=== PATIENT | female | born 1965 | race Caucasian/White ===

== ENCOUNTER 2017-04-16 08:16 | Inpatient (IN) | payer OTHER ==
[~2017-04-16 08:16] MED LIST: ROPIVACAINE 0.2% 80 MG, EPINEPHrine 0.2 MG, KETOROLAC TROMETHAMINE 30 MG in SYRINGE 0 ML IU ONE; TRANEXAMIC ACID 3,000 MG in NS 50 ML IRR ONE; TRANEXAMIC ACID 3,000 MG/50 ML BAG IRR ONE
[2017-04-16] MEDS ORDERED: LIDOCAINE 1% 2 ML INJ ID PRN (08:44)
[2017-04-16] MEDS ORDERED: LR 1,000 ML IV ONE (08:44)
--- NOTE | 2017-04-16 08:51 | PDANEPAE ---
ANE History of Present Illness 51 year old female w/ PMHx left hip pain presents for left total hip arthroplasty. ANE Past Medical History - Cardiovascular History Hx Hypertension: No Hx Arrhythmias: No Hx Chest Pain: No Hx Coronary Artery / Peripheral Vascular Disease: No Hx CHF / Valvular Disease: No Hx Palpitations: No - Pulmonary History Hx COPD: No Hx Asthma/Reactive Airway Disease: No Hx Recent Upper Respiratory Infection: No Hx Oxygen in Use at Home: No Hx Sleep Apnea: No Sleep Apnea Screening Result - Last Documented: Negative Pulmonary History Comment: PNEUMONIA YRS AGO - Neurologic History Hx Cerebrovascular Accident: No Hx Seizures: No Hx Dementia: No - Endocrine History Hx Diabetes: No Hypothyroid: No Hyperthyroid: No Obesity: no - Liver History Hx Hepatic Disorders: No - Neurological & Psychiatric Hx Hx Neurological and Psychiatric Disorders: Yes Neurological / Psychiatric History Comment: Recently started on Lexapro for depression - Cancer History Hx Cancer: No - Congenital Disorder History Hx Congenital Disorders: No - GI History Hx Gastrointestinal Disorders: No - Other Health History Other Health History: NEG - Chronic Pain History Chronic Pain: Yes (L HIP PAIN) - Surgical History Prior Surgeries: BREAST BX ANE Review of Systems Review of systems is: negative Review of Systems: - Exercise capacity Exercise capacity: >=4 METS METS (RN): 5 METS ANE Patient History - Allergies Allergies/Adverse Reactions: amoxicillin Allergy (Verified 03/08/17 14:51) Rash morphine Allergy (Verified 03/08/17 14:51) - Home Medications Home medications: home medication list seen and reviewed Home Medications: Herbals/Supplements -Info Only 1 ea PO DAILY 03/08/17 [Last Taken 04/02/17] Lexapro 10 mg PO DAILY 04/16/17 [Last Taken 04/16/17 06:30] - NPO status NPO Status: no food or drink >8 hours - Anes Hx Anes Hx: no prior problems - Smoking Hx Smoking Status: Never smoked Marijuana use: No - Alcohol Use Alcohol Use: Rarely - Family Anes Hx Family Hx Anesthesia Complications: FATHER W/POST OP HALLUCINATIONS FOLLOWING HEART SURGERY ANE Labs/Vital Signs - Vital Signs Vital Signs: reviewed preoperatively; see RN documention for details Height: 163.83 cm Weight: 65.771 kg ANE Physical Exam - Airway Neck exam: FROM Mallampati Score: Class 2 Mouth exam: normal dental/mouth exam - Pulmonary Pulmonary: no respiratory distress - Cardiovascular Cardiovascular: regular rate and rhythym - ASA Status ASA Status: II ANE Anesthesia Plan Anesthesia Plan: general endotracheal anesthesia (General Anesthesia as back up plan.), MAC, spinal Total IV Anesthesia: No
[2017-04-16] MEDS ORDERED: ceFAZolin 2 GM/SWFI 2 GM/20 ML SYR IVP ONE (08:52)
[2017-04-16] MEDS ORDERED: ACETAMINOPHEN 325 MG TAB PO ONE (08:52)
[2017-04-16] MEDS ORDERED: DEXAMETHASONE 4 MG/ML VIAL IVP ONE (08:52)
[2017-04-16] MEDS ORDERED: FAMOTIDINE 20 MG TAB PO ONE (08:52)
--- NOTE | 2017-04-16 09:15 | PDHPUP ---
History & Physical Update H&P update statement: This history and physical update is based on an assessment of the patient which was completed after admission or registration (within 24 hours), but prior to the surgery/procedure. H&P update: H&P reviewed & patient examined, no change in patient's condition since H&P completed
[2017-04-16] MEDS ORDERED: MIDAZOLAM 2 MG/2 ML VIAL IVP ONE (09:24)
[2017-04-16] MEDS ORDERED: PROPOFOL/EMULSION 500 MG/50 ML BOTTLE IV ONE (09:54)
[2017-04-16] MEDS ORDERED: HYDROmorphONE/DILAUDID 1 MG/ML INJ IVP PRN (10:32)
[2017-04-16] MEDS ORDERED: NALOXONE HCL 0.4 MG/ML INJ IVP PRN (10:32)
[2017-04-16] MEDS ORDERED: fentaNYL 100 MCG/2 ML INJ IVP PRN (10:32)
[2017-04-16] MEDS ORDERED: ONDANSETRON 4 MG/2 ML VIAL IVP PRN ×2 (10:32→11:35)
[2017-04-16] MEDS ORDERED: HYDROCODONE/APAP 5/325 TAB PO PRN (10:32)
[2017-04-16] MEDS ORDERED: LR 500 ML IV PRN (10:32)
[2017-04-16] MEDS ORDERED: TEMAZEPAM 15 MG CAP PO PRN (11:35)
[2017-04-16] MEDS ORDERED: METOCLOPRAMIDE 10 MG/2 ML VIAL IVP PRN (11:35)
[2017-04-16] MEDS ORDERED: DIPHENOXYLATE/ATROPINE LOMOTIL 1 TAB PO PRN (11:35)
[2017-04-16] MEDS ORDERED: PROMETHAZINE HCL 25 MG SUPPR PR PRN (11:35)
[2017-04-16] MEDS ORDERED: ONDANSETRON DISINTEGRATING 4 MG TAB PO PRN (11:35)
[2017-04-16] MEDS ORDERED: diphenhydrAMINE 25 MG CAP PO PRN (11:35)
[2017-04-16] MEDS ORDERED: LACTULOSE 20 GM/30 ML UDCUP PO PRN (11:35)
[2017-04-16] MEDS ORDERED: MAGNESIUM HYDROXIDE 30 ML UDCUP PO PRN (11:35)
[2017-04-16] MEDS ORDERED: BISACODYL 10 MG SUPP PR PRN (11:35)
[2017-04-16] MEDS ORDERED: CYCLOBENZAPRINE 10 MG TAB PO PRN (11:35)
[2017-04-16] MEDS ORDERED: PROMETHAZINE HCL 25 MG/ML INJ IVP PRN (11:35)
[2017-04-16] MEDS ORDERED: POLYETHYLENE GLYCOL 3350 17 GM PKT PO PRN (11:35)
--- NOTE | 2017-04-16 11:35 | POSTOPPROG ---
Post Op Note Date of Operation: 04/16/17 Surgeon: Ashu Schwartz [employer] Managing Editor: tobin schwartz Anesthesiologist: dr. sotelo Anesthesia: Spinal Pre-op Diagnosis: left hip OA Post-op Diagnosis: same Indication: left hip pain due to OA that failed conservative measures Procedure: L CRISSY ant approach Findings: severe hip OA Inf/Abcess present in the surg proc area at time of surgery?: No EBL: 100-500
[2017-04-16] MEDS ORDERED: fentaNYL 100 MCG/2 ML INJ ONE (11:54)
[2017-04-16] MEDS ORDERED: LR 1,000 ML IV SCH (12:00)
--- NOTE | 2017-04-16 12:53 | POSTANESTH ---
Post Anesthetic Evaluation Cardiovascular Status: Normal, Stable, Similar to Pre-Op Cond Respiratory Status: Normal, Stable, Similar to Pre-op Cond. Level of Consciousness/Mental Status: Can Participate in Eval, Alert and Oriented Pain Control: Adequate, Prn Tx Ordered Nausea/Vomiting Control: Adequate, Prn Tx Ordered Complications Possibly Related to Anesthesia: None Noted
[2017-04-16] MEDS: ACETAMINOPHEN 325 MG TAB PO SCH ×2 (13:30→18:12)
[2017-04-16] MEDS ORDERED: ceFAZolin 2 GM/SWFI 20 ML SYR IVP SCH ×2 (13:30→18:00)
[2017-04-16] MEDS: oxyCODONE IR 5 MG TAB PO PRN (13:30)
[2017-04-16] MEDS ORDERED: ceFAZolin 2 GM/DEXTROSE 100 ML IV SCH (14:00)
[2017-04-16] MEDS: ceFAZolin 2 GM/SWFI 2 GM/20 ML SYR IVP SCH (18:13)
[2017-04-16 19:41] VITALS: RESP 16
[2017-04-16] MEDS: SENNOSIDES/DOCUSATE SODIUM TAB PO SCH (20:21)
[2017-04-16] MEDS: FAMOTIDINE 20 MG TAB PO SCH (20:24)
[2017-04-16] MEDS ORDERED: ASPIRIN EC 81 MG TAB PO SCH (20:30)
[2017-04-17] MEDS: ACETAMINOPHEN 325 MG TAB PO SCH ×2 (00:21→05:50)
[2017-04-17] MEDS: ceFAZolin 2 GM/SWFI 2 GM/20 ML SYR IVP SCH (02:15)
[2017-04-17 05:17] LABS: HEMATOCRIT 30.2 % (38.0-47.0); HEMOGLOBIN 10.6 g/dL (12.6-16.3)
[2017-04-17 05:39] VITALS: O2SAT 95
[2017-04-17 08:27] VITALS: BP 108/51; PULSE 74; TEMP 99.1
[2017-04-17] MEDS ORDERED: ASPIRIN EC 81 MG TAB PO SCH (09:00)
[2017-04-17] MEDS ORDERED: ESCITALOPRAM OXALATE 10 MG TAB PO SCH (09:00)
--- NOTE | 2017-04-17 09:24 | SOAPPROG ---
SOAP Progress Note Assessment/Plan: Assessment: Lexii is doing well today s/p L CRISSY 1) pain is well controlled on oral pain meds 2) VTE ppx: recommend ASA 81mg BID 3) d/c planning: d/c to home pending release from PT 4) anemia: level expected initially postop Plan: 04/17/17 09:20 Objective: Vital Signs Temp Pulse Resp BP Pulse Ox 37.3 C 74 16 108/51 L 95 04/17/17 08:25 04/17/17 08:25 04/17/17 08:25 04/17/17 08:25 04/17/17 08:25 Laboratory Results 04/17/17 04:50 04/16/17 04/17/17 04/18/17 05:59 05:59 05:59 Intake Total 2675 Output Total 1550 Balance 1125 ICD10 Worksheet Patient Problems: Problems Problem Status Onset Primary localized osteoarthritis of left hip Acute
[2017-04-17] MEDS: FAMOTIDINE 20 MG TAB PO SCH (09:46)
[2017-04-17] MEDS: SENNOSIDES/DOCUSATE SODIUM TAB PO SCH (09:47)
[2017-04-17] MEDS: oxyCODONE IR 5 MG TAB PO PRN (09:59)
--- NOTE | 2017-04-17 10:06 | ASDISCHSUM ---
Discharge Information Plan Status:Home with No Needs Medically Cleared to Leave:04/16/2017 Discharge Date:04/16/2017 CM D/C Disposition:Home, Routine, Self-Care ADT D/C Disposition:Home, Routine, Self-Care Projected Discharge Date:04/16/2017 Transportation at D/C:Family Discharge Delay Reason: Follow-Up Date:04/16/2017 Discharge Slot: Final Diagnosis: Placement Information Patient Contact Information Contact Name:BRYCE Relationship:Sam Address:[address] City:[place] Alternate Phone: [facility]/Zip Code:[place] [address] Email: Financial Information Financial Class:Thuy Palmer Primary Plan Desc:THUY CRISOSTOMO [facility] Primary Plan Number:[id number] Secondary Plan Desc: Secondary Plan Number: Assessment Information Case Management Discharge Plan Note Case Management Discharge Discharge Order Complete? Answers: Yes Patient to Obtain Answers: via Family Medications Transportation Arranged Answers: Family/Friends Discharge Comments Notes: Pt s/p L CRISSY. PT/OT cleared. Pt is discharging home today with her . No CM needs identified. Date Signed: 04/17/2017 10:05 AM Electronically Signed By:MARY Bah Intervention Information
--- NOTE | 2017-04-19 17:25 | GOP ---
[f rep st] OPERATIVE REPORT DATE OF OPERATION: 04/16/2017 SURGEON: Jarrett Acosta MD MAGAZINE KEEPER: Yelena Acosta PA-C PREOPERATIVE DIAGNOSIS: Left hip osteoarthritis. POSTOPERATIVE DIAGNOSIS: Left hip osteoarthritis. PROCEDURE PERFORMED: Left total hip arthroplasty with x-ray. FINDINGS: ESTIMATED BLOOD LOSS: 400 cc. IMPLANTS: Accolade II size 3 at 127. The acetabular component is a 52 mm Tritanium. The liner is a trident X3 32mm. The head is a Biolox Delta 32 mm + 0. INDICATIONS: The patient has progressively worsening arthritis of the hip which has failed medical management. The patient understands the treatment options including continued non-operative care and has selected surgical intervention. The patient has decided to undergo total hip arthroplasty via the direct anterior approach, understanding the risks of the procedure including, but not limited to, neurovascular injury, infection, persistent pain, component wear and loosening, deep venous thrombosis, pulmonary embolism, limb length inequality, hip instability (including dislocation), and intra-operative fractures. DESCRIPTION OF PROCEDURE: After proper identification of the patient including verification and marking the surgical site, the patient was brought to the operating room and placed in the supine position. All bony prominences were well padded. Anesthesia was induced without complication and intravenous prophylactic antibiotics were administered prior to skin incision. The operative leg was placed in the Trumpf Arch table extension and the well leg in a Yellofin leg dodge. The patient was prepped and draped in the usual sterile fashion. The C-arm was draped for intra-operative fluoroscopy to check acetabular position, femoral component position including leg length and femoral offset. Attention was then drawn to surgical exposure of the hip. An incision was made with a #10 Bard Alexys blade starting 3 cm lateral and 3 cm distal to the anterior superior iliac spine measuring 8-10 cm and coursing distally toward the greater trochanter. The skin and subcutaneous tissues were divided sharply down to the fascia jose. The fascia jose was incised in line with the skin incision exposing the underlying tensor fascia jose muscle. The muscle was bluntly elevated from the fascia and the first extracapsular Cobra retractor was placed laterally at the junction of the superior femoral neck and greater trochanter. The lateral femoral circumflex vessels were identified, cauterized, and divided with the Aquamantys bipolar cautery. The deep investing fascia of the TFL was divided to allow proper mobilization of the muscle preventing damage during the retraction. The reflected head of the rectus femoris muscle was elevated off the anterior hip capsule and a medial Cobra retractor was placed just proximal to the lesser trochanter. The anterior capsulotomy was made sharply from the superolateral acetabulum to the saddle junction of the superior femoral neck and greater trochanter, then coursing inferomedial towards the lesser trochanter. The retractors were then placed in the intracapsular position for femoral neck osteotomy. Corresponding to pre-operative templating, the osteotomy was made with the oscillating saw carefully protecting the greater trochanter and soft tissues. The femoral head was removed from the acetabulum with a corkscrew and confirmed to be severely arthritic with exposed bone, deformity and osteophytes. Similar findings were confirmed in the acetabulum. The Arch table extension was then placed in 40 degrees external rotation. Attention was then drawn to the acetabular preparation. After placement of the anterior and posterior Cobra retractors outside the labrum and intracapsular, the circumferential labrum was removed sharply. The foveal contents were then removed and hemostasis obtained with cautery. The first reamer selected was sized using the removed femoral head. Reaming began with medialization and then commenced in 2 mm increments at 45 degrees of abduction and 15 degrees of anteversion using fluoroscopic navigation. Reaming ceased 1 mm less than the definitive acetabular component and corresponded to the pre-operative templating. The final acetabular component was inserted using fluoroscopy to achieve proper orientation yielding excellent purchase and stability in the acetabulum. The final acetabular liner was then placed and its seating confirmed. Attention was then turned to the femur. The Arch table extension was placed in extension and adduction, delivering the osteotomized femoral neck into the wound. A 2-pronged femoral elevator was placed at the calcar and another at the tip of the greater trochanter. The posterolateral capsule was released with cautery allowing mobilization of the femur lateral and anterior for preparation. The external rotators were visualized and preserved. A curette and rongeur were used to open the starting point for broaching. Serial broaching started with the #0 broach and ended with the broach that exhibited excellent fit in the proximal femur. A change in pitch during mallet strikes was accompanied by the inability to advance the broach any further. The trial reduction was performed and fluoroscopic navigation was utilized to check limb length. Adjustments were made to equalize limb length accordingly. After the final trials were accepted they were removed and the wound was copiously lavaged. The femoral component was seated to the same depth as the final broach and the femoral head was impacted onto the clean trunnion. The hip was then reduced for the final time and once more fluoroscopy was used to check that limb length equality was achieved. The wound was irrigated and closed in layers, the fascia jose with 2-0 Quill, the subcutaneous tissue with 2-0 Quill, and the skin with Dermabond. Sterile dressings were applied. Final sharps and sponge counts were accurate. The patient was then transferred to a hospital bed and brought to the recovery room in stable condition. /[id number]/MODL MTDD
== END 2017-04-17 10:14 | disposition home or self-care (01) | DRG 470 ==
LOC: F3N 08:16
PROVIDERS: ADMIT Orthopaedic Surgery; ATTEND Orthopaedic Surgery
PROC: 0SRB04Z Replacement of Left Hip Joint with Ceramic on Polyethylene Synthetic Substitute, Open Approach (ICD-10-PCS; principal; 2017-04-16 10:15)
DX: M16.12 Unilateral primary osteoarthritis, left hip (principal)
CPT/HCPCS: 97110-GP; 97116-GP; 97161-GP; 97165-GO; J0171; J0690; J1100; J1885; J2250; J2405; J2704; J2795; J3010